=== PATIENT | female | born 1985 | race Hispanic/Latino ===

== ENCOUNTER 2025-02-24 15:49 | Emergency (ER) | payer SELFPAY ==
[~2025-02-24] VITALS: Ht 152.4 cm; Wt 152.0 kg
[2025-02-24 15:55] VITALS: TEMP 98.5
[2025-02-24 16:19] LABS: BASOPHILS % 0.3 % (0.0-1.0); EOSINOPHILS # (AUTO) 0.1 (0.0-0.4); EOSINOPHILS % 1.7 % (0.0-6.0); HEMATOCRIT 36.4 % (34.2-44.1); HEMOGLOBIN 11.7 g/dL (12.0-16.0); LYMPHOCYTES # (AUTO) 2.3 (1.0-3.2); MEAN CORPUSCULAR HEMOGLOBIN 28.1 pg (28-32); MEAN CORPUSCULAR HGB CONC 32.1 g/dL (31-35); MEAN CORPUSCULAR VOLUME 87.5 fL (81-99); MONOCYTES # (AUTO) 0.6 (0.2-0.8); MONOCYTES % 8.6 % (4.4-11.3); NEUTROPHILS # (AUTO) 3.9 (2.1-6.9); PLATELET COUNT 266 x10e3/uL (140-360); RED BLOOD COUNT 4.16 x10e6/uL (3.6-5.1); RED CELL DISTRIBUTION WIDTH 14.6 % (11.7-14.4); WHITE BLOOD COUNT 6.99 x10e3/uL (4.8-10.8)
[2025-02-24 16:34] LABS: INR 0.94; PARTIAL THROMBOPLASTIN TIME 23.7 seconds (23.8-35.5); PROTHROMBIN TIME 13.2 seconds (11.9-14.5)
[2025-02-24 16:41] LABS: ALANINE AMINOTRANSFERASE 25 IU/L (0-55); ALBUMIN/GLOBULIN RATIO 0.9 (0.8-2.0); ALKALINE PHOSPHATASE 66 IU/L (40-150); BILIRUBIN,TOTAL 0.4 mg/dL (0.2-1.2); BLOOD UREA NITROGEN 7 mg/dL (7-26); BUN/CREATININE RATIO 11 (6-25); CALCIUM 8.6 mg/dL (8.4-10.2); CARBON DIOXIDE 25 mmol/L (22-29); CHLORIDE 107 mmol/L (98-107); CREATININE, SERUM 0.65 mg/dL (0.57-1.11); EST GLOMERULAR FILTRATION RATE 115 ML/MIN (>=60); GLUCOSE 112 mg/dL (74-118); MAGNESIUM 1.9 MG/DL (1.3-2.1); SODIUM 142 mmol/L (136-145); TOTAL PROTEIN 6.4 g/dL (6.5-8.1)
[2025-02-24] MEDS: SODIUM CHLORIDE 0.9% 1000ML 1,000 ML IV STA (16:54)
[2025-02-24 17:01] LABS: THYROID STIMULATING HORMONE 1.133 uIU/mL (0.350-4.940); TROPONIN I 0.005 ng/mL (0-0.300)
[2025-02-24 17:40] VITALS: PULSE 84; RESP 16; O2SAT 98
== END 2025-02-24 18:13 | disposition home or self-care (01) ==
LOC: ER 16:10
DX: R00.2 Palpitations (principal); R07.89 Other chest pain; E66.01 Morbid (severe) obesity due to excess calories; R73.03 Prediabetes; M06.9 Rheumatoid arthritis, unspecified
CPT/HCPCS: 36415; 71045; 80053; 83735; 84443; 84484; 84702; 85025; 85610; 85730; 93005; 99284; J7030